=== PATIENT | male | born 1955 | race Caucasian/White ===

== ENCOUNTER 2018-11-18 03:40 | Emergency (ER) | payer OTHER ==
--- NOTE | 2018-11-18 04:27 | ER ---
Nurse's Notes [facility] Name: Kenney Dash Age: 63 yrs Sex: Male : 1955 Arrival Date: 11/18/2018 Time: 03:42 Bed 7 Private MD: Diagnosis: Pain in left knee;Effusion of joint-left knee;Lymphangitis-ascending Presentation: 11/18 03:43 Presenting complaint: Patient states: Pain that started in left thigh and went down to tl2 right knee and knee became red and swollen. Pt is unable to bear weight on left leg. Transition of care: patient was not received from another setting of care. Onset of symptoms was November 18, 2018 at 01:00. Risk Assessment: Do you want to hurt yourself or someone else? Patient reports no desire to harm self or others. Initial Sepsis Screen: Does the patient meet any 2 criteria? No. Patient's initial sepsis screen is negative. Does the patient have a suspected source of infection? No. Patient's initial sepsis screen is negative. Care prior to arrival: None. 03:43 Method Of Arrival: EMS: [facility] tl2 03:43 Acuity: BEN 3 tl2 Triage Assessment: 03:49 General: Appears in no apparent distress. uncomfortable, Behavior is calm, cooperative, tl2 appropriate for age. Pain: Complains of pain in left knee Pain does not radiate. Pain currently is 9 out of 10 on a pain scale. Quality of pain is described as burning. Neuro: Level of Consciousness is awake, alert, obeys commands, Oriented to person, place, time, situation. Cardiovascular: Denies chest pain. Respiratory: Airway is patent Respiratory effort is even, unlabored, Respiratory pattern is regular, symmetrical. GI: No signs and/or symptoms were reported involving the gastrointestinal system. Derm: Skin is pink, warm \\T\\ dry. redness and swelling noted on left knee. Historical: - Allergies: 06:20 Vancomycin; tl2 - Home Meds: 03:49 inhalers [Active]; Bystolic oral oral [Active]; tl2 - PMHx: 03:49 Hypertension; tl2 - PSHx: 03:49 left knee replacement; RD ankle replacements; tl2 - Immunization history:: Adult Immunizations up to date. - Social history:: Smoking status: Patient/guardian denies using tobacco. - Ebola Screening: : No symptoms or risks identified at this time. - Family history:: not pertinent. Screenin:52 Abuse screen: Denies threats or abuse. Nutritional screening: No deficits noted. tl2 Tuberculosis screening: No symptoms or risk factors identified. Fall Risk Gait- Impaired (20 pts.). Assessment: 03:54 General: see triage assessment. tl2 05:00 Reassessment: Patient appears in no apparent distress at this time. Patient and/or tl2 family updated on plan of care and expected duration. Pain level reassessed. Patient is alert, oriented x 3, equal unlabored respirations, skin warm/dry/pink. 06:18 Reassessment: Pt developed rash on right arm and stated he was feeling "itchy" approx tl2 15 minutes after vancomycin administration. Infusion, stopped. notified. New orders see JAN. Vital Signs: 03:49 BP 163 / 109; Pulse 85; Resp 18; Temp 98(O); Pulse Ox 98% on R/A; Weight 108.86 kg; tl2 Height 5 ft. 11 in. (180.34 cm); Pain 9/10; 05:07 BP 145 / 101; Pulse 80; Resp 17; Pulse Ox 94% on R/A; Pain 4/10; tl1 05:40 BP 164 / 105; Pulse 81; Resp 18; Pulse Ox 95% on R/A; tl2 06:02 BP 178 / 101; Pulse 84; Resp 17; Temp 98.3; Pulse Ox 96% on R/A; Pain 4/10; tl1 03:49 Body Mass Index 33.47 (108.86 kg, 180.34 cm) tl2 ED Course: 03:42 Patient arrived in ED. tl2 03:48 Triage completed. tl2 03:49 Arm band placed on left wrist. tl2 03:52 Patient has correct armband on for positive identification. Placed in gown. Bed in low tl2 position. Call light in reach. Side rails up X 1. 03:59 Jong Walker MD is Attending Physician. yecenia 04:36 X-ray completed. Portable x-ray completed in exam room. Patient tolerated procedure sg4 well. 04:56 XRAY Chest (1 view) In Process Unspecified. EDMS 04:56 Knee Left 3 View XRAY In Process Unspecified. EDMS 05:05 Sally Andrews, TALYA is Primary Nurse. tl1 05:07 No provider procedures requiring assistance completed. Inserted saline lock: 20 gauge tl1 in right hand, using aseptic technique. Blood collected. 05:08 initiated transfer with [facility]. spoke with darion martínez RN. 05:31 administrative approval was given at 0531 by darion martínez RN. accepting physician is reanna green gm. 05:41 faxed facesheet and MOT to [phone]. 07:08 Patient transferred, IV remains in place. tl1 Administered Medications: Discontinued: vancoMYCIN 1 grams IVPB once over 2 hrs 04:28 Drug: morphine 4 mg Route: IVP; Infused Over: 2 mins; Site: left antecubital; tl2 07:07 Follow up: Response: No adverse reaction; Marked relief of symptoms tl1 04:28 Drug: Zofran 4 mg Route: IVP; Infused Over: 2 mins; Site: left antecubital; tl2 07:07 Follow up: Response: No adverse reaction; Marked relief of symptoms; Nausea is decreasedtl1 05:06 Drug: NS 0.9% 1000 ml Route: IV; Rate: 1 bolus; Site: right hand; tl1 07:07 Follow up: IV Status: Completed infusion tl1 05:06 Drug: Zosyn 3.375 grams Route: IVPB; Infused Over: 60 mins; Site: right hand; tl1 05:28 Follow up: IV Status: Completed infusion tl1 05:08 Drug: Dilaudid 1 mg Route: IVP; Infused Over: 2 mins; Site: right hand; tl1 07:06 Follow up: Response: No adverse reaction; Marked relief of symptoms; Pain is decreased tl1 05:28 Drug: vancoMYCIN 1 grams Route: IVPB; Infused Over: 2 hrs; Site: right hand; tl1 07:09 Follow up: IV Status: Order to discontinue infusion tl1 06:15 Drug: Benadryl 25 mg Route: IVP; Infused Over: 2 mins; Site: right hand; tl1 07:06 Follow up: Response: No adverse reaction; Marked relief of symptoms tl1 06:16 Drug: Dilaudid 1 mg Route: IVP; Infused Over: 2 mins; Site: right hand; tl1 07:06 Follow up: Response: No adverse reaction; Marked relief of symptoms; Pain is decreased tl1 06:27 Drug: Clindamycin 900 mg Route: IVPB; Infused Over: 30 mins; Site: right hand; tl2 07:06 Follow up: IV Status: Infusion continued upon transfer tl1 Outcome: 04:27 ER care complete, transfer ordered by MD. keene 07:08 Transferred by ground EMS to [facility], Transfer form completed. X-rays sent tl1 w/ patient. 07:08 Condition: stable 07:08 Instructed on the need for transfer. 07:09 Patient left the ED. tl1 Addendum: 11/24/2018 08:17 Addendum: Culture Results: Positive blood culture. Phone call Attempt #1 Faxed culture s s report to [facility] ATTN 6 Shalom Robledo. Signatures: Dispatcher [employer] EDJong Wakefield MD MD cha Smirch, Shelby RN RN ss Sally Andrews RN RN tl1 Lena Acevedo RN RN tl2 Edyta Guzman [facility] Yumi Perry gm Corrections: (The following items were deleted from the chart) 11/18 06:20 03:49 Allergies: No Known Allergies; tl2 tl2
--- NOTE | 2018-11-18 04:27 | EDPHYS ---
Physician Documentation [facility] Name: Kenney Dash Age: 63 yrs Sex: Male : 1955 Arrival Date: 11/18/2018 Time: 03:42 Bed 7 Private MD: ED Physician Jong Walker HPI: 11/18 04:21 This 63 yrs old Male presents to ER via EMS with complaints of Knee Pain. yecenia 04:21 The patient presents with decreased range of motion, pain, swelling, tenderness. The yecenia complaints affect the lateral aspect of left knee, medial aspect of left thigh, medial aspect of left knee and left knee. Context: resulted from an unknown cause, the patient is not able to bear weight, the patient is not able to ambulate. Onset: The symptoms/episode began/occurred 2 day(s) ago. Modifying factors: The symptoms are alleviated by nothing. elevating leg, remaining still. Associated signs and symptoms: The patient has no apparent associated signs or symptoms. Treatment prior to arrival includes: no previous treatment. Severity of symptoms: At their worst the symptoms were moderate, severe, in the emergency department the symptoms are unchanged. The patient has not experienced similar symptoms in the past. Historical: - Allergies: 06:20 Vancomycin; tl2 - Home Meds: 03:49 inhalers [Active]; Bystolic oral oral [Active]; tl2 - PMHx: 03:49 Hypertension; tl2 - PSHx: 03:49 left knee replacement; RD ankle replacements; tl2 - Immunization history:: Adult Immunizations up to date. - Social history:: Smoking status: Patient/guardian denies using tobacco. - Ebola Screening: : No symptoms or risks identified at this time. - Family history:: not pertinent. ROS: 04:21 Constitutional: Negative for fever, chills, and weight loss, Eyes: Negative for injury, yecenia pain, redness, and discharge, ENT: Negative for injury, pain, and discharge, Neck: Negative for injury, pain, and swelling, Cardiovascular: Negative for chest pain, palpitations, and edema, Respiratory: Negative for shortness of breath, cough, wheezing, and pleuritic chest pain, Abdomen/GI: Negative for abdominal pain, nausea, vomiting, diarrhea, and constipation, Back: Negative for injury and pain, : Negative for injury, bleeding, discharge, and swelling, Neuro: Negative for headache, weakness, numbness, tingling, and seizure, Psych: Negative for depression, anxiety, suicide ideation, homicidal ideation, and hallucinations, Allergy/Immunology: Negative for hives, rash, and allergies, Endocrine: Negative for neck swelling, polydipsia, polyuria, polyphagia, and marked weight changes, Hematologic/Lymphatic: Negative for swollen nodes, abnormal bleeding, and unusual bruising. 04:21 MS/extremity: Positive for decreased range of motion, pain, swelling, tenderness, warmth, of the left leg and medial aspect of left knee and medial aspect of left thigh and lateral aspect of left knee and left knee. Exam: 04:21 Constitutional: This is a well developed, well nourished patient who is awake, alert, yecenia and in no acute distress. Head/Face: Normocephalic, atraumatic. Eyes: Pupils equal round and reactive to light, extra-ocular motions intact. Lids and lashes normal. Conjunctiva and sclera are non-icteric and not injected. Cornea within normal limits. Periorbital areas with no swelling, redness, or edema. ENT: Nares patent. No nasal discharge, no septal abnormalities noted. Tympanic membranes are normal and external auditory canals are clear. Oropharynx with no redness, swelling, or masses, exudates, or evidence of obstruction, uvula midline. Mucous membranes moist. Neck: Trachea midline, no thyromegaly or masses palpated, and no cervical lymphadenopathy. Supple, full range of motion without nuchal rigidity, or vertebral point tenderness. No Meningismus. Chest/axilla: Normal chest wall appearance and motion. Nontender with no deformity. No lesions are appreciated. Cardiovascular: Regular rate and rhythm with a normal S1 and S2. No gallops, murmurs, or rubs. Normal PMI, no JVD. No pulse deficits. Respiratory: Lungs have equal breath sounds bilaterally, clear to auscultation and percussion. No rales, rhonchi or wheezes noted. No increased work of breathing, no retractions or nasal flaring. Abdomen/GI: Soft, non-tender, with normal bowel sounds. No distension or tympany. No guarding or rebound. No evidence of tenderness throughout. Back: No spinal tenderness. No costovertebral tenderness. Full range of motion. Male : Normal genitalia with no discharge or lesions. Skin: Warm, dry with normal turgor. Normal color with no rashes, no lesions, and no evidence of cellulitis. Neuro: Awake and alert, GCS 15, oriented to person, place, time, and situation. Cranial nerves II-XII grossly intact. Motor strength 5/5 in all extremities. Sensory grossly intact. Cerebellar exam normal. Normal gait. Psych: Awake, alert, with orientation to person, place and time. Behavior, mood, and affect are within normal limits. 04:21 Musculoskeletal/extremity: Extremities: decreased ROM, erythema, pain, swelling, tenderness, ROM: no acute changes, Circulation is intact in all extremities. Severe pain noted. Compartment Syndrome exam of affected extremity: is normal. DVT Exam: negative Homans' sign noted on exam, no appreciated bluish discoloration, pain, swelling, tenderness, erythema, increased warmth, of the left leg, of the medial aspect of left knee and medial aspect of left thigh and lateral aspect of left knee and left knee. Vital Signs: 03:49 BP 163 / 109; Pulse 85; Resp 18; Temp 98(O); Pulse Ox 98% on R/A; Weight 108.86 kg; tl2 Height 5 ft. 11 in. (180.34 cm); Pain 9/10; 05:07 BP 145 / 101; Pulse 80; Resp 17; Pulse Ox 94% on R/A; Pain 4/10; tl1 05:40 BP 164 / 105; Pulse 81; Resp 18; Pulse Ox 95% on R/A; tl2 06:02 BP 178 / 101; Pulse 84; Resp 17; Temp 98.3; Pulse Ox 96% on R/A; Pain 4/10; tl1 03:49 Body Mass Index 33.47 (108.86 kg, 180.34 cm) tl2 MDM: 03:59 Patient medically screened. [facility] 04:21 Data reviewed: vital signs, nurses notes, lab test result(s), EKG, radiologic studies, yecenia plain films. 11/18 04:19 Order name: Basic Metabolic Panel; Complete Time: 05:50 [facility] 11/18 04:19 Order name: CBC with Diff; Complete Time: 05:50 [facility] 11/18 04:19 Order name: LFT's; Complete Time: 05:50 [facility] 11/18 04:19 Order name: Magnesium; Complete Time: 05:50 [facility] 11/18 04:19 Order name: NT PRO-BNP; Complete Time: 05:50 [facility] 11/18 04:19 Order name: PT-INR; Complete Time: 05:50 [facility] 11/18 04:19 Order name: Troponin (emerg Dept Use Only); Complete Time: 05:50 [facility] 11/18 04:19 Order name: XRAY Chest (1 view) [facility] 11/18 04:19 Order name: Blood Culture Adult (2) [facility] 11/18 04:19 Order name: Procalcitonin; Complete Time: 05:50 [facility] 11/18 04:19 Order name: Lactate; Complete Time: 05:50 [facility] 11/18 04:19 Order name: Knee Left 3 View XRAY [facility] 11/18 05:30 Order name: CBC Smear Scan; Complete Time: 05:50 [facility] 11/18 04:19 Order name: EKG; Complete Time: 04:20 [facility] 11/18 04:19 Order name: Cardiac monitoring; Complete Time: 04:29 [facility] 11/18 04:19 Order name: EKG - Nurse/Tech; Complete Time: 04:47 [facility] 11/18 04:19 Order name: IV Saline Lock; Complete Time: 04:29 [facility] 11/18 04:19 Order name: Labs collected and sent; Complete Time: 04:29 [facility] 11/18 04:19 Order name: O2 Per Protocol; Complete Time: 04:29 [facility] 11/18 04:19 Order name: O2 Sat Monitoring; Complete Time: 04:29 [facility] Administered Medications: Discontinued: vancoMYCIN 1 grams IVPB once over 2 hrs 04:28 Drug: morphine 4 mg Route: IVP; Infused Over: 2 mins; Site: left antecubital; tl2 07:07 Follow up: Response: No adverse reaction; Marked relief of symptoms tl1 04:28 Drug: Zofran 4 mg Route: IVP; Infused Over: 2 mins; Site: left antecubital; tl2 07:07 Follow up: Response: No adverse reaction; Marked relief of symptoms; Nausea is decreasedtl1 05:06 Drug: NS 0.9% 1000 ml Route: IV; Rate: 1 bolus; Site: right hand; tl1 07:07 Follow up: IV Status: Completed infusion tl1 05:06 Drug: Zosyn 3.375 grams Route: IVPB; Infused Over: 60 mins; Site: right hand; tl1 05:28 Follow up: IV Status: Completed infusion tl1 05:08 Drug: Dilaudid 1 mg Route: IVP; Infused Over: 2 mins; Site: right hand; tl1 07:06 Follow up: Response: No adverse reaction; Marked relief of symptoms; Pain is decreased tl1 05:28 Drug: vancoMYCIN 1 grams Route: IVPB; Infused Over: 2 hrs; Site: right hand; tl1 07:09 Follow up: IV Status: Order to discontinue infusion tl1 06:15 Drug: Benadryl 25 mg Route: IVP; Infused Over: 2 mins; Site: right hand; tl1 07:06 Follow up: Response: No adverse reaction; Marked relief of symptoms tl1 06:16 Drug: Dilaudid 1 mg Route: IVP; Infused Over: 2 mins; Site: right hand; tl1 07:06 Follow up: Response: No adverse reaction; Marked relief of symptoms; Pain is decreased tl1 06:27 Drug: Clindamycin 900 mg Route: IVPB; Infused Over: 30 mins; Site: right hand; tl2 07:06 Follow up: IV Status: Infusion continued upon transfer tl1 Disposition: 11/18/18 04:[address] [facility]. Diagnosis are Pain in left knee, Effusion of joint - left knee, Lymphangitis - ascending. - Reason for transfer: Higher level of care. - Accepting physician is [facility]. - Condition is Fair. - Problem is new. - Symptoms have improved. Signatures: Dispatcher [employer] EDJong Wakefield MD MD cha Lasagna, Tonya RN RN tl1 Lena Acevedo RN RN tl2 Corrections: (The following items were deleted from the chart) 04:27 04:27 11/18/2018 04:[address] [facility]. [facility] Diagnosis is Pain in left knee; Effusion of joint - left knee. Reason for transfer: Higher level of care. Accepting physician is [facility]. Condition is Fair. Problem is new. Symptoms have improved. yecenia 06:20 03:49 Allergies: No Known Allergies; tl2 tl2 07:09 04:27 11/18/2018 04:[address] [facility]. tl1 Diagnosis is Pain in left knee; Effusion of joint - left knee; Lymphangitis - ascending. Reason for transfer: Higher level of care. Accepting physician is [facility]. Condition is Fair. Problem is new. Symptoms have improved. yecenia
[2018-11-18] MEDS ORDERED: MORPHINE 4 MG/ML SYR ONE (04:28)
[2018-11-18] MEDS ORDERED: ONDANSETRON 4 MG/2 ML VIAL ONE (04:29)
[2018-11-18] MEDS ORDERED: VANCOMYCIN 1 GM/250 ML BAG ONE (04:40)
[2018-11-18] MEDS ORDERED: PIPER/TAZO/NS 3.375gm 3.375 GM/100 ML BAG ONE (04:40)
[2018-11-18] MEDS ORDERED: NA CHLORIDE 0.9% 1,000 ML ONE (04:49)
[2018-11-18 05:05] LABS: Protime INR 0.97
[2018-11-18 05:07] LABS: Absolute Lymphocytes (CBC) 0.2 K/uL (0.7-4.9); Absolute Monocytes 0.3 K/uL (0.1-1.3); Absolute Neutrophil 3.2 K/uL (1.8-8.0); Basophils % 0.6 % (0-1.3); Hematocrit 44.1 % (39.6-49.0); Lymphocytes % 4.7 % (15.3-44.8); MPV 9.1 fL (7.6-11.3); Monocytes % 6.6 % (3.3-12.3); RBC Red Blood Cell Count 4.14 M/uL (4.33-5.43)
[2018-11-18] MEDS ORDERED: HYDROMORPHONE HCL 1 MG/ML INJ ONE ×2 (05:10→06:24)
[2018-11-18 05:30] LABS: ALT/SGPT 76 U/L (12-78); AST/SGOT 54 U/L (15-37); Albumin 4.1 g/dL (3.4-5.0); Alkaline Phosphatase 70 U/L (45-117); BUN Blood Urea Nitrogen 15 mg/dL (7-18); Bicarbonate 22 mmol/L (21-32); Bilirubin Direct 0.2 mg/dL (0-0.2); Bilirubin Total 0.5 mg/dL (0.2-1.0); Blood Morphology Comment NOTED (NOT SEEN); Glucose Level 116 mg/dL (74-106); Macrocytosis 1+; Magnesium 1.9 mg/dL (1.8-2.4); NT PRO-BNP 189 pg/mL (<125); Platelet Estimate DECR; Protein, Total 6.6 g/dL (6.4-8.2); Sodium Level 140 mmol/L (136-145); Troponin (Emerg Dept Use Only) < 0.02 ng/mL (0.0-0.045); Urine White Blood Cell Casts OK
[2018-11-18] MEDS ORDERED: DIPHENHYDRAMINE 50 MG/ML VIAL ONE (06:20)
[2018-11-18] MEDS ORDERED: CLINDAMYCIN 900MG/D5W 900 MG/50 ML IVPB IV ONE (06:27)
--- NOTE | 2018-11-18 10:08 | RAD REPORT ---
EXAM DESCRIPTION: Aicha Single View11/18/2018 6:53 am CLINICAL HISTORY: cough COMPARISON: June 2018 FINDINGS: The lungs appear clear of acute infiltrate. The heart is mildly enlarged. Postsurgical changes involve the chest. IMPRESSION: No acute abnormalities displayed
--- NOTE | 2018-11-18 10:09 | RAD REPORT ---
EXAM DESCRIPTION: RAD - Knee Left 3 View - 11/18/2018 6:53 am CLINICAL HISTORY: Left knee pain FINDINGS: No fracture or dislocation is seen. Left knee prosthesis in good position without evidence of loosening. No bony destructive lesions seen. Soft tissue swelling present
--- NOTE | 2018-11-18 16:08 | EKG ---
Test Date: 2018-11-18 Test Time: 04:48:37 Tool Supervisor: ASAF MEASUREMENT RESULTS: Intervals: Rate: 93 FL: 196 QRSD: 90 QT: 394 QTc: 489 [place]: P: 48 FL: 196 QRS: -28 T: 24 INTERPRETIVE STATEMENTS: Sinus rhythm with frequent and consecutive premature ventricular complexes Inferior infarct, age undetermined Possible Anterior infarct, age undetermined Abnormal ECG Compared to ECG 11/18/2018 04:44:52 No significant changes Electronically Signed On 11-18-18 16:07:56 DECKHAND TUNA BOAT by Girish Fountain
--- NOTE | 2018-11-18 16:08 | EKG ---
Test Date: 2018-11-18 Test Time: 04:44:52 Painting Department Supervisor: ASAF MEASUREMENT RESULTS: Intervals: Rate: 80 SD: 190 QRSD: 90 QT: 398 QTc: 459 [place]: P: 48 SD: 190 QRS: -24 T: 29 INTERPRETIVE STATEMENTS: Sinus rhythm with frequent premature ventricular complexes Inferior infarct, age undetermined Possible Anterior infarct, age undetermined Abnormal ECG No previous ECG available for comparison Electronically Signed On 11-18-18 16:07:57 BOTTOM SANDER by Girish Fountain
== END 2018-11-18 07:09 | disposition short-term general hospital (02) ==
LOC: ER 03:40
DX: M25.562 Pain in left knee (principal); M25.462 Effusion, left knee; I89.1 Lymphangitis; I49.3 Ventricular premature depolarization; R94.31 Abnormal electrocardiogram [ECG] [EKG]; I10 Essential (primary) hypertension; Z79.899 Other long term (current) drug therapy; Z96.652 Presence of left artificial knee joint; Z96.662 Presence of left artificial ankle joint; Z96.661 Presence of right artificial ankle joint
CPT/HCPCS: 36415; 71045; 80048; 80076; 83605; 83735; 83880; 84145; 84484; 85025; 85610; 87040; 87077; 87186; 87205; 93005; 99285; J1170; J2405; J2543; J3370; J7030

== ENCOUNTER 2019-08-27 09:15 | Emergency (ER) | payer OTHER ==
[2019-08-27] MEDS ORDERED: MORPHINE 4 MG/ML SYR ONE (09:41)
[2019-08-27] MEDS ORDERED: ONDANSETRON 4 MG/2 ML VIAL ONE (09:42)
[2019-08-27] MEDS ORDERED: predniSONE 20 MG TAB ONE (09:42)
--- NOTE | 2019-08-27 15:37 | EDPHYS ---
Physician Documentation [facility] Name: Kenney Dash Age: 63 yrs Sex: Male : 1955 Arrival Date: 08/27/2019 Time: 09:20 Bed External Waiting Private MD: ED Physician Maksim Rhodes HPI: 08/27 10:04 This 63 yrs old Male presents to ER via EMS with complaints of Back Pain. kb 10:04 The patient presents with pain that is acute, with no known mechanism of injury. The kb symptoms are located in the left low back. Onset: The symptoms/episode began/occurred this morning. The pain radiates to the left leg. Associated signs and symptoms: The patient has no apparent associated signs or symptoms. The problem was sustained without known cause. Modifying factors: The patient symptoms are alleviated by nothing, the patient symptoms are aggravated by any movement. Severity of symptoms: At their worst the symptoms were moderate, in the emergency department the symptoms are unchanged. The patient has not experienced similar symptoms in the past. The patient has not recently seen a physician. Pt reports left low back/buttock pain that radiates down left leg. Started this morning. No relief after 3 norco 5/325. - Immunization history:: Adult Immunizations. - Social history:: Smoking status: unknown. - Ebola Screening: : No symptoms or risks identified at this time. ROS: 10:04 Constitutional: Negative for fever, chills, and weight loss, Cardiovascular: Negative kb for chest pain, palpitations, and edema, Respiratory: Negative for shortness of breath, cough, wheezing, and pleuritic chest pain, Abdomen/GI: Negative for abdominal pain, nausea, vomiting, diarrhea, and constipation, : Negative for injury, bleeding, discharge, and swelling, MS/Extremity: Negative for injury and deformity, Skin: Negative for injury, rash, and discoloration, Neuro: Negative for headache, weakness, numbness, tingling, and seizure. 10:04 Back: Positive for pain at rest, pain with movement, radiated pain, of the left low back. Exam: 10:03 Constitutional: This is a well developed, well nourished patient who is awake, alert, kb and in no acute distress. Head/Face: Normocephalic, atraumatic. Neck: Trachea midline, no thyromegaly or masses palpated, and no cervical lymphadenopathy. Supple, full range of motion without nuchal rigidity, or vertebral point tenderness. No Meningismus. Chest/axilla: Normal chest wall appearance and motion. Nontender with no deformity. No lesions are appreciated. Cardiovascular: Regular rate and rhythm with a normal S1 and S2. No gallops, murmurs, or rubs. Normal PMI, no JVD. No pulse deficits. Respiratory: Lungs have equal breath sounds bilaterally, clear to auscultation and percussion. No rales, rhonchi or wheezes noted. No increased work of breathing, no retractions or nasal flaring. Abdomen/GI: Soft, non-tender, with normal bowel sounds. No distension or tympany. No guarding or rebound. No evidence of tenderness throughout. Skin: Warm, dry with normal turgor. Normal color with no rashes, no lesions, and no evidence of cellulitis. MS/ Extremity: Pulses equal, no cyanosis. Neurovascular intact. Full, normal range of motion. Neuro: Awake and alert, GCS 15, oriented to person, place, time, and situation. Cranial nerves II-XII grossly intact. Motor strength 5/5 in all extremities. Sensory grossly intact. Cerebellar exam normal. Normal gait. 10:03 Back: pain, that is moderate, of the left low back, ROM is normal. Vital Signs: 09:20 BP 150 / 70; Pulse 70; Resp 18; Temp 97.5; Pulse Ox 99% ; Weight 104.33 kg; Height 5 bp ft. 11 in. (180.34 cm); 09:20 Body Mass Index 32.08 (104.33 kg, 180.34 cm) bp MDM: 09:29 Patient medically screened. kb 09:38 Data reviewed: vital signs, nurses notes. Data interpreted: Pulse oximetry: on room air kb is 99 %. Interpretation: normal. Counseling: I had a detailed discussion with the patient and/or guardian regarding: the historical points, exam findings, and any diagnostic results supporting the discharge/admit diagnosis, the need for outpatient follow up, a family practitioner, to return to the emergency department if symptoms worsen or persist or if there are any questions or concerns that arise at home. Administered Medications: No medications were administered Disposition: 13:42 Co-signature as Attending Physician, Maksim Rhodes MD. rn Disposition: 08/27/19 09:38 Discharged to Home. Impression: Sciatica, left side. - Condition is Stable. - Discharge Instructions: Sciatica, [id number]. - Prescriptions for Prednisone 20 mg Oral Tablet - take 1 tablet by ORAL route once daily for 5 days; 5 tablet. Cyclobenzaprine 10 mg Oral Tablet - take 1 tablet by ORAL route every 8 hours As needed; 30 tablet. - Medication Reconciliation Form, Thank You Letter, Antibiotic Education, Prescription Opioid Use form. - Follow up: Emergency Department; When: As needed; Reason: Worsening of condition. Follow up: Private Physician; When: 2 - 3 days; Reason: Recheck today's complaints, Continuance of care, Re-evaluation by your physician. Signatures: Cindy Damon, CATHY-C [employer]-Val Rodrigues, RN RN Maksim Sanchez MD MD rn Peltier, Brian, RN RN bp Corrections: (The following items were deleted from the chart) 15:36 09:38 08/27/2019 09:38 Discharged to Home. Impression: Sciatica, left side. Condition iw is Stable. Forms are Medication Reconciliation Form, Thank You Letter, Antibiotic Education, Prescription Opioid Use. Follow up: Emergency Department; When: As needed; Reason: Worsening of condition. Follow up: Private Physician; When: 2 - 3 days; Reason: Recheck today's complaints, Continuance of care, Re-evaluation by your physician. kb
--- NOTE | 2019-08-27 15:38 | ER ---
Nurse's Notes [facility] Name: Kenney Dash Age: 63 yrs Sex: Male : 1955 Arrival Date: 08/27/2019 Time: 09:20 Bed External Waiting [facility] MD: Diagnosis: Sciatica, left side Presentation: 08/27 09:20 Presenting complaint: EMS states: BACK PAIN RADIATING DOWN LLE. Transition of care: bp patient was not received from another setting of care. Onset of symptoms is unknown. Risk Assessment: Do you want to hurt yourself or someone else? Patient reports no desire to harm self or others. Initial Sepsis Screen: Does the patient meet any 2 criteria? No. Patient's initial sepsis screen is negative. Does the patient have a suspected source of infection? No. Patient's initial sepsis screen is negative. Care prior to arrival: IV initiated. 20 GA, in the right forearm, Glucose check: 156. 09:20 Method Of Arrival: EMS: [facility] bp 09:20 Acuity: BEN 4 bp - Immunization history:: Adult Immunizations. - Social history:: Smoking status: unknown. - Ebola Screening: : No symptoms or risks identified at this time. Assessment: 10:30 General: Appears in no apparent distress. well groomed, well developed, well nourished, sg Behavior is calm, cooperative, appropriate for age. Pain: Complains of pain in left low back Quality of pain is described as aching. 10:30 Neuro: Level of Consciousness is awake, alert, obeys commands, Oriented to person, sg place, time, situation, Transportation Maintenance Specialist are equal bilaterally Moves all extremities. Speech is normal, Facial symmetry appears normal. Cardiovascular: Capillary refill is brisk in bilateral fingers Patient's skin is warm and dry. Chest pain is denied. Respiratory: Airway is patent Respiratory effort is even, unlabored, Respiratory pattern is regular, symmetrical. GI: Abdomen is round non-distended. : No signs and/or symptoms were reported regarding the genitourinary system. EENT: No signs and/or symptoms were reported regarding the EENT system. Derm: Skin is pink, warm \T\ dry. Musculoskeletal: Circulation, motion, and sensation intact. Range of motion: intact in all extremities, Swelling absent Reports pain in left low back. Vital Signs: 09:20 BP 150 / 70; Pulse 70; Resp 18; Temp 97.5; Pulse Ox 99% ; Weight 104.33 kg; Height 5 bp ft. 11 in. (180.34 cm); 09:20 Body Mass Index 32.08 (104.33 kg, 180.34 cm) bp ED Course: 09:20 Patient arrived in ED. bp 09:20 Arm band placed on. bp 09:21 William Andujar, RN is Primary Nurse. sg 09:22 Triage completed. bp 09:29 Maksim Rhodes MD is Attending Physician. ms 09:29 Cindy Damon [facility]C [facility] ms 10:32 Patient has correct armband on for positive identification. Bed in low position. Call sg light in reach. Side rails up X2. Pulse ox on. NIBP on. 10:48 No provider procedures requiring assistance completed. IV discontinued, intact, sg bleeding controlled, No redness/swelling at site. Pressure dressing applied. Administered Medications: No medications were administered Outcome: 09:38 Discharge ordered by . kb 10:48 Discharged to home ambulatory. sg 10:48 Condition: good 10:48 Discharge instructions given to patient, Instructed on discharge instructions, follow up and referral plans. medication usage, Demonstrated understanding of instructions, follow-up care, medications, Prescriptions given X 2. 15:36 Patient left the ED. iw Signatures: Cindy Damon FNP-C FNP-William Salvador, RN TALYA sg Val Adams RN RN Dana Taylor ms, Brian RN RN bp
[2019-08-27 16:52] VITALS: BP 150/70; TEMP 97.5; O2SAT 99
== END 2019-08-27 15:36 | disposition home or self-care (01) ==
LOC: ER 09:15
DX: M54.32 Sciatica, left side (principal)
CPT/HCPCS: 99283; J7512; J2405